=== PATIENT | female | born 1990 | race African-American/Black ===

== ENCOUNTER 2022-07-03 18:36 | Inpatient (IN) | payer OTHER ==
[2022-07-03 18:55] VITALS: BMI 20.9
[2022-07-03] MEDS ORDERED: MAGNESIUM CITRATE 300 ML BOTTLE PO PRN (19:29)
[2022-07-03] MEDS ORDERED: IBUPROFEN 400 MG TABLET (FP) PO PRN (19:29)
[2022-07-03] MEDS ORDERED: P-EPHED 60MG/TRIPROLIDI 2.5MG TABLET PO PRN (19:29)
[2022-07-03] MEDS ORDERED: guaiFENesin 200 MG/10 ML 10 ML UNIT-DOSE CUPS PO PRN (19:29)
[2022-07-03] MEDS ORDERED: NICOTINE 10 MG CARTRIDGE (INHALER) IH PRN (19:29)
[2022-07-03] MEDS ORDERED: LOPERAMIDE HCL 2 MG CAPSULE PO PRN (19:29)
[2022-07-03] MEDS ORDERED: MAG HYDROX/AL HYDROX/SIMETH 30 ML UNIT-DOSE CUP PO PRN (19:29)
[2022-07-03] MEDS ORDERED: ACETAMINOPHEN 325 MG TABLET (FP) PO PRN (19:29)
[2022-07-03] MEDS ORDERED: MAGNESIUM HYDROX 2400MG/30ML ORAL SUSPENSION 30 ML CUP PO PRN (19:29)
[2022-07-03 23:46] VITALS: RESP 18
[2022-07-03] MEDS: PRENATAL VITAMINS W/ FOLIC ACID TABLET (FP) PO SCH (23:57)
[2022-07-03] MEDS: THIAMINE HCL 100 MG TABLET (FP) PO SCH (23:57)
[2022-07-03] MEDS: hydrOXYzine PAMOATE 25 MG CAPSULE (FP) PO SCH (23:57)
[2022-07-03] MEDS: MELATONIN 5 MG TABLETS PO SCH (23:57)
[2022-07-03] MEDS: BACITRACIN 0.9 GM PACKET TP SCH (23:57)
[2022-07-03] MEDS: NICOTINE 7 MG/24 HOURS TOPICAL PATCH TD SCH (23:57)
[2022-07-04] MEDS: hydrOXYzine PAMOATE 25 MG CAPSULE (FP) PO SCH ×3 (07:52→14:07)
[2022-07-04] MEDS: NICOTINE 7 MG/24 HOURS TOPICAL PATCH TD SCH (09:53)
[2022-07-04] MEDS: PRENATAL VITAMINS W/ FOLIC ACID TABLET (FP) PO SCH (09:53)
[2022-07-04] MEDS: BACITRACIN 0.9 GM PACKET TP SCH (09:54)
[2022-07-04 11:11] LABS: HEMATOCRIT 33.9 % (32.4-45.2); HEMOGLOBIN 10.7 GM/dL (10.7-15.3); MCH 26.2 pg (25.7-33.7); MCHC 31.6 g/dl (32.0-36.0); MEAN CELL VOLUME 82.9 fl (80-96); MEAN PLT VOLUME 8.3 fl (7.5-11.1); PLATELET COUNT 458 10^3/uL (134-434); RBC 4.09 M/mm3 (3.60-5.2); RDW 15.3 % (11.6-15.6); WHITE BLOOD COUNT 4.3 K/mm3 (4.0-10.0)
[2022-07-04 11:36] LABS: CALCIUM 8.9 mg/dL (8.5-10.1)
[2022-07-04 11:37] LABS: ALBUMIN 3.5 g/dl (3.4-5.0); BLOOD UREA NITROGEN 11.3 mg/dL (7-18)
[2022-07-04 11:41] LABS: BILIRUBIN,TOTAL 0.5 mg/dL (0.2-1); TOT PROT 6.4 g/dl (6.4-8.2)
[2022-07-04] MEDS ORDERED: hydrOXYzine PAMOATE 25 MG CAPSULE (FP) PO PRN (16:19)
[2022-07-04] MEDS ORDERED: TUBERCULIN PPD 5 TU/0.1ML VIAL ID ONE (17:13)
[2022-07-04] MEDS: MELATONIN 5 MG TABLETS PO SCH (21:26)
[2022-07-04] MEDS: MIRTAZAPINE 15 MG TABLET (FP) PO SCH (21:27)
[2022-07-04] MEDS: THIAMINE HCL 100 MG TABLET (FP) PO SCH (21:27)
[2022-07-04] MEDS: QUEtiapine FUMARATE 50 MG TABLET PO SCH (21:28)
[2022-07-05 07:08] VITALS: PULSE 64
[2022-07-05] MEDS: NICOTINE 7 MG/24 HOURS TOPICAL PATCH TD SCH (09:57)
[2022-07-05] MEDS: PRENATAL VITAMINS W/ FOLIC ACID TABLET (FP) PO SCH (09:57)
[2022-07-05] MEDS: BACITRACIN 0.9 GM PACKET TP SCH (09:57)
[2022-07-05] MEDS: MELATONIN 5 MG TABLETS PO SCH (21:34)
[2022-07-05] MEDS: QUEtiapine FUMARATE 50 MG TABLET PO SCH (21:34)
[2022-07-05] MEDS: THIAMINE HCL 100 MG TABLET (FP) PO SCH (21:34)
[2022-07-05] MEDS: MIRTAZAPINE 15 MG TABLET (FP) PO SCH (21:34)
[2022-07-06 08:37] VITALS: BP 105/65; TEMP 97.6
[2022-07-06] MEDS: BACITRACIN 0.9 GM PACKET TP SCH (10:15)
[2022-07-06] MEDS: PRENATAL VITAMINS W/ FOLIC ACID TABLET (FP) PO SCH (10:15)
[2022-07-06] MEDS: NICOTINE 7 MG/24 HOURS TOPICAL PATCH TD SCH (10:15)
== END 2022-07-06 11:44 | disposition left against medical advice (07) | DRG 770 ==
LOC: YASAS 18:36 → Y5N 23:08
PROVIDERS: ADMIT Allergy & Immunology; ATTEND Psychiatry & Neurology Pain Medicine
PROC: HZ42ZZZ Group Counseling for Substance Abuse Treatment, Cognitive-Behavioral (ICD-10-PCS; principal; 2022-07-03)
DX: F11.20 Opioid dependence, uncomplicated (principal); F10.20 Alcohol dependence, uncomplicated; F14.20 Cocaine dependence, uncomplicated; F17.210 Nicotine dependence, cigarettes, uncomplicated; F19.282 Other psychoactive substance dependence with psychoactive substance-induced sleep disorder; F19.24 Other psychoactive substance dependence with psychoactive substance-induced mood disorder; Z86.69 Personal history of other diseases of the nervous system and sense organs; Z86.59 Personal history of other mental and behavioral disorders; Z59.00 Homelessness unspecified; Z56.0 Unemployment, unspecified
CPT/HCPCS: 36415; 80053; 81025; 85027; 86780; 93005; 93010; C9803-CS; U0003; U0005

== ENCOUNTER 2022-10-10 20:19 | Inpatient (IN) | payer OTHER ==
[2022-10-10 20:55] VITALS: BMI 22.1
[2022-10-10] MEDS ORDERED: hydrOXYzine PAMOATE 25 MG CAPSULE (FP) PO PRN (23:14)
[2022-10-10] MEDS ORDERED: ONDANSETRON *ODT* 4 MG TABLET SL PRN (23:14)
[2022-10-10] MEDS ORDERED: POLYETHYLENE GLYCOL (HEALTHYLAX) 3350 17 GM PACKET PO PRN (23:14)
[2022-10-10] MEDS ORDERED: LOPERAMIDE HCL 2 MG CAPSULE PO PRN (23:14)
[2022-10-10] MEDS ORDERED: MAG HYDROX/AL HYDROX/SIMETH 30 ML UNIT-DOSE CUP PO PRN (23:14)
[2022-10-10] MEDS ORDERED: IBUPROFEN 400 MG TABLET (FP) PO PRN (23:14)
[2022-10-10] MEDS ORDERED: NALOXONE HCL (KLOXXADO) 8 MG SPRAY NS PRN (23:14)
[2022-10-10] MEDS ORDERED: BISMUTH SUBSALICYLATE 524 MG/30 ML PO PRN (23:14)
[2022-10-10] MEDS ORDERED: MAGNESIUM HYDROX 2400MG/30ML ORAL SUSPENSION 30 ML CUP PO PRN (23:14)
[2022-10-10] MEDS ORDERED: DICYCLOMINE HCL 10 MG CAPSULE PO PRN (23:14)
[2022-10-10] MEDS ORDERED: IBUPROFEN 600 MG TABLET (FP) PO PRN (23:14)
[2022-10-10] MEDS ORDERED: BENZOCAINE/MENTHOL (CHLORASEPTIC ) LOZENGE MM PRN (23:14)
[2022-10-10] MEDS ORDERED: NICOTINE POLACRILEX 2 MG GUM BUC PRN (23:14)
[2022-10-10] MEDS ORDERED: ACETAMINOPHEN 325 MG TABLET (FP) PO PRN ×2 (23:14)
[2022-10-11] MEDS: METHOCARBAMOL 500 MG TABLET PO PRN (02:09)
[2022-10-11] MEDS: PRENATAL VITAMINS W/ FOLIC ACID TABLET (FP) PO SCH (10:59)
[2022-10-11] MEDS: NICOTINE 14 MG/24 HOURS TOPICAL PATCH TD SCH (10:59)
[2022-10-11 11:13] LABS: HEMATOCRIT 37.4 % (32.4-45.2); MCH 26.1 pg (25.7-33.7); MCHC 32.1 g/dl (32.0-36.0); MEAN CELL VOLUME 81.5 fl (80-96); MEAN PLT VOLUME 8.4 fl (7.5-11.1); PLATELET COUNT 412 10^3/uL (134-434); RBC 4.59 M/mm3 (3.60-5.2); RDW 19.2 % (11.6-15.6); WHITE BLOOD COUNT 3.8 K/mm3 (4.0-10.0)
[2022-10-11 11:50] LABS: CREATININE 0.9 mg/dL (0.55-1.3)
[2022-10-11 11:51] LABS: TOT PROT 6.7 g/dl (6.4-8.2)
[2022-10-11 11:52] LABS: ALBUMIN 3.6 g/dl (3.4-5.0); BILIRUBIN,TOTAL 0.5 mg/dL (0.2-1); BLOOD UREA NITROGEN 11.8 mg/dL (7-18)
[2022-10-11 11:54] LABS: CALCIUM 9.2 mg/dL (8.5-10.1)
[2022-10-11] MEDS ORDERED: MELATONIN 5 MG TABLETS PO SCH (22:00)
[2022-10-11] MEDS ORDERED: THIAMINE HCL 100 MG TABLET (FP) PO SCH (22:00)
[2022-10-11] MEDS: QUEtiapine FUMARATE 200 MG TABLET PO SCH (23:53)
[2022-10-12] MEDS: QUEtiapine FUMARATE 200 MG TABLET PO SCH (00:56)
[2022-10-12 09:37] VITALS: TEMP 97.3
[2022-10-12] MEDS: PRENATAL VITAMINS W/ FOLIC ACID TABLET (FP) PO SCH (10:43)
[2022-10-12] MEDS: NICOTINE 14 MG/24 HOURS TOPICAL PATCH TD SCH (10:44)
[2022-10-12] MEDS: METHOCARBAMOL 500 MG TABLET PO PRN (10:44)
[2022-10-12 13:01] VITALS: BP 117/59; PULSE 72; RESP 18
== END 2022-10-12 14:09 | disposition home or self-care (01) | DRG 774 ==
LOC: YASAS 20:19 → UNDOADMIN 23:17 → Y6N 23:17
PROVIDERS: ADMIT Allergy & Immunology; ATTEND Surgery
PROC: HZ2ZZZZ Detoxification Services for Substance Abuse Treatment (ICD-10-PCS; principal; 2022-10-10)
DX: F10.230 Alcohol dependence with withdrawal, uncomplicated (principal); F14.20 Cocaine dependence, uncomplicated; F12.20 Cannabis dependence, uncomplicated; F17.210 Nicotine dependence, cigarettes, uncomplicated; F19.280 Other psychoactive substance dependence with psychoactive substance-induced anxiety disorder; F19.282 Other psychoactive substance dependence with psychoactive substance-induced sleep disorder; F32.A Depression, unspecified
CPT/HCPCS: 36415; 71046-TC-FY; 80053; 81025; 85027; 86780; C9803-CS; U0003; U0005

== ENCOUNTER 2023-03-02 18:07 | Inpatient (IN) | payer OTHER ==
[2023-03-02 19:09] VITALS: BMI 29.5
[2023-03-02] MEDS ORDERED: NALOXONE HCL (KLOXXADO) 8 MG SPRAY NS PRN (20:01)
[2023-03-02] MEDS ORDERED: LOPERAMIDE HCL 2 MG CAPSULE PO PRN (20:01)
[2023-03-02] MEDS ORDERED: NALOXONE HCL 0.4 MG/ML VIAL IM PRN (20:01)
[2023-03-02] MEDS ORDERED: IBUPROFEN 600 MG TABLET (FP) PO PRN (20:01)
[2023-03-02] MEDS ORDERED: POLYETHYLENE GLYCOL (HEALTHYLAX) 3350 17 GM PACKET PO PRN (20:01)
[2023-03-02] MEDS ORDERED: guaiFENesin 600 MG TABLET.ER (FP) PO PRN (20:01)
[2023-03-02] MEDS ORDERED: MELATONIN 5 MG TABLETS PO PRN (20:01)
[2023-03-02] MEDS ORDERED: IBUPROFEN 400 MG TABLET (FP) PO PRN (20:01)
[2023-03-02] MEDS ORDERED: BENZONATATE 200 MG CAPSULE PO PRN (20:01)
[2023-03-02] MEDS ORDERED: P-EPHED 60MG/TRIPROLIDI 2.5MG TABLET PO PRN (20:01)
[2023-03-02] MEDS ORDERED: ACETAMINOPHEN 325 MG TABLET (FP) PO PRN (20:01)
[2023-03-02] MEDS ORDERED: BENZOCAINE/MENTHOL (CHLORASEPTIC ) LOZENGE MM PRN (20:01)
[2023-03-02] MEDS ORDERED: MAG HYDROX/AL HYDROX/SIMETH 30 ML UNIT-DOSE CUP PO PRN (20:01)
[2023-03-02] MEDS: COLLOIDAL OATMEAL 1 BAR EACH TP PRN (23:21)
[2023-03-02] MEDS ORDERED: TUBERCULIN PPD 5 TU/0.1ML SYRINGE (IN PATIENT USE ONLY) ID ONE (23:30)
[2023-03-02] MEDS: hydrOXYzine PAMOATE 25 MG CAPSULE (FP) PO PRN (23:33)
[2023-03-02] MEDS: THIAMINE HCL 100 MG TABLET (FP) PO SCH (23:34)
[2023-03-03] MEDS: BUPRENORPHINE/NALOXONE 4 MG/1 MG FILM PACKET SL SCH (10:37)
[2023-03-03] MEDS: PRENATAL VITAMINS W/ FOLIC ACID TABLET (FP) PO SCH (10:37)
[2023-03-03 13:20] LABS: EPI CELLS >36 /uL (0-25.1); HYALINE CASTS 9 /uL (0-3.1); URINE APPEARANCE CLOUDY; URINE BACTERIA 3014 /uL (0-1359); URINE BILIRUBIN NEGATIVE (NEGATIVE); URINE COLOR YELLOW; URINE GLUCOSE (UA) NEGATIVE (NEGATIVE); URINE KETONE NEGATIVE (NEGATIVE); URINE LEUK ESTERASE 1+ (NEGATIVE); URINE NITRITE NEGATIVE (NEGATIVE); URINE PROTEIN TRACE (NEGATIVE); URINE RBC 10 /uL (0-23.9); URINE UROBILINOGEN 0.2 mg/dL (0.2-1.0); URINE WBC 248 /uL (0-25.8)
[2023-03-03] MEDS: THIAMINE HCL 100 MG TABLET (FP) PO SCH (21:29)
[2023-03-03] MEDS: QUEtiapine FUMARATE 200 MG TABLET PO SCH (21:29)
[2023-03-03] MEDS: MIRTAZAPINE 15 MG TABLET (FP) PO SCH (21:29)
[2023-03-03] MEDS: DIVALPROEX SODIUM 500 MG TABLET E.C. PO SCH (21:29)
[2023-03-03] MEDS: NICOTINE 10 MG CARTRIDGE (INHALER) IH PRN (21:31)
[2023-03-03] MEDS: NICOTINE POLACRILEX 2 MG GUM BC PRN (21:43)
[2023-03-04] MEDS: PRENATAL VITAMINS W/ FOLIC ACID TABLET (FP) PO SCH (10:11)
[2023-03-04] MEDS: BUPRENORPHINE/NALOXONE 4 MG/1 MG FILM PACKET SL SCH (10:11)
[2023-03-04] MEDS: DIVALPROEX SODIUM 500 MG TABLET E.C. PO SCH ×2 (10:11→21:48)
[2023-03-04 12:21] LABS: HEMATOCRIT 33.6 % (32.4-45.2); HEMOGLOBIN 11.3 GM/dL (10.7-15.3); MCH 28.8 pg (25.7-33.7); MCHC 33.7 g/dl (32.0-36.0); MEAN CELL VOLUME 85.5 fl (80-96); PLATELET COUNT 389 10^3/uL (134-434); RBC 3.93 M/mm3 (3.60-5.2); RDW 14.7 % (11.6-15.6); WHITE BLOOD COUNT 4.3 K/mm3 (4.0-10.0)
[2023-03-04 12:44] LABS: POTASSIUM 4.3 mmol/L (3.5-5.1)
[2023-03-04 12:47] LABS: CALCIUM 9.1 mg/dL (8.5-10.1)
[2023-03-04 12:48] LABS: ALBUMIN 3.1 g/dl (3.4-5.0)
[2023-03-04 12:51] LABS: BILIRUBIN,TOTAL 0.4 mg/dL (0.2-1); CREATININE 1.1 mg/dL (0.55-1.3); TOT PROT 6.1 g/dl (6.4-8.2)
[2023-03-04] MEDS: NICOTINE POLACRILEX 2 MG GUM BC PRN ×2 (16:59→19:31)
[2023-03-04] MEDS: QUEtiapine FUMARATE 200 MG TABLET PO SCH (21:48)
[2023-03-04] MEDS: THIAMINE HCL 100 MG TABLET (FP) PO SCH (21:48)
[2023-03-04] MEDS: hydrOXYzine PAMOATE 25 MG CAPSULE (FP) PO PRN (21:48)
[2023-03-04] MEDS: MIRTAZAPINE 15 MG TABLET (FP) PO SCH (21:48)
[2023-03-05] MEDS: PRENATAL VITAMINS W/ FOLIC ACID TABLET (FP) PO SCH (10:25)
[2023-03-05] MEDS: DIVALPROEX SODIUM 500 MG TABLET E.C. PO SCH ×2 (10:25→21:23)
[2023-03-05] MEDS: BUPRENORPHINE/NALOXONE 4 MG/1 MG FILM PACKET SL SCH (10:26)
[2023-03-05] MEDS: THIAMINE HCL 100 MG TABLET (FP) PO SCH (21:22)
[2023-03-05] MEDS: QUEtiapine FUMARATE 200 MG TABLET PO SCH (21:22)
[2023-03-05] MEDS: hydrOXYzine PAMOATE 25 MG CAPSULE (FP) PO PRN (21:23)
[2023-03-05] MEDS: MIRTAZAPINE 15 MG TABLET (FP) PO SCH (21:23)
[2023-03-05] MEDS: NICOTINE POLACRILEX 2 MG GUM BC PRN (21:49)
[2023-03-06] MEDS: DIVALPROEX SODIUM 500 MG TABLET E.C. PO SCH ×2 (09:58→21:36)
[2023-03-06] MEDS: PRENATAL VITAMINS W/ FOLIC ACID TABLET (FP) PO SCH (09:58)
[2023-03-06] MEDS: BUPRENORPHINE/NALOXONE 4 MG/1 MG FILM PACKET SL SCH (09:59)
[2023-03-06] MEDS ORDERED: VITAMINS A AND D TOPICAL OINTMENT 60 GM TUBE TP PRN (11:20)
[2023-03-06] MEDS: NICOTINE POLACRILEX 2 MG GUM BC PRN ×3 (13:51→19:13)
[2023-03-06] MEDS: NICOTINE 10 MG CARTRIDGE (INHALER) IH PRN ×2 (13:51→20:38)
[2023-03-06] MEDS: hydrOXYzine PAMOATE 25 MG CAPSULE (FP) PO PRN ×2 (14:03→21:38)
[2023-03-06] MEDS ORDERED: HYDROCORTISONE 0.5% TOPICAL OINTMENT TUBE TP PRN (14:47)
[2023-03-06] MEDS ORDERED: BUPRENORPHINE/NALOXONE 4 MG/1 MG FILM PACKET SL ONE (15:00)
[2023-03-06] MEDS: HYDROCORTISONE 1% TOPICAL OINT 30 GM TUBE TP PRN (21:35)
[2023-03-06] MEDS: THIAMINE HCL 100 MG TABLET (FP) PO SCH (21:36)
[2023-03-06] MEDS: MIRTAZAPINE 15 MG TABLET (FP) PO SCH (21:36)
[2023-03-06] MEDS: QUEtiapine FUMARATE 200 MG TABLET PO SCH (21:36)
[2023-03-07] MEDS: COLLOIDAL OATMEAL 1 BAR EACH TP PRN (07:25)
[2023-03-07 08:03] VITALS: RESP 18
[2023-03-07] MEDS: PRENATAL VITAMINS W/ FOLIC ACID TABLET (FP) PO SCH (10:32)
[2023-03-07] MEDS: BUPRENORPHINE/NALOXONE 4 MG/1 MG FILM PACKET SL SCH ×2 (10:32→21:15)
[2023-03-07] MEDS: DIVALPROEX SODIUM 500 MG TABLET E.C. PO SCH ×2 (10:32→21:15)
[2023-03-07] MEDS: NICOTINE POLACRILEX 2 MG GUM BC PRN ×3 (11:41→20:17)
[2023-03-07] MEDS: HYDROCORTISONE 1% TOPICAL OINT 30 GM TUBE TP PRN (17:51)
[2023-03-07] MEDS: hydrOXYzine PAMOATE 25 MG CAPSULE (FP) PO PRN (21:15)
[2023-03-07] MEDS: THIAMINE HCL 100 MG TABLET (FP) PO SCH (21:15)
[2023-03-07] MEDS: QUEtiapine FUMARATE 200 MG TABLET PO SCH (21:15)
[2023-03-07] MEDS: MIRTAZAPINE 15 MG TABLET (FP) PO SCH (21:15)
[2023-03-08] MEDS: DIVALPROEX SODIUM 500 MG TABLET E.C. PO SCH ×2 (09:59→21:07)
[2023-03-08] MEDS: BUPRENORPHINE/NALOXONE 4 MG/1 MG FILM PACKET SL SCH ×2 (09:59→21:06)
[2023-03-08] MEDS: PRENATAL VITAMINS W/ FOLIC ACID TABLET (FP) PO SCH (09:59)
[2023-03-08] MEDS: NICOTINE POLACRILEX 2 MG GUM BC PRN ×3 (10:00→19:00)
[2023-03-08] MEDS ORDERED: FLU VACC QS2022-23(6MOS UP)/PF 60 MCG/0.5 ML SYRINGE IM ONE (12:00)
[2023-03-08] MEDS ORDERED: PNEUMOC 20-VAL CONJ-DIP CRM/PF 0.5 ML SYRINGE IM ONE (12:00)
[2023-03-08] MEDS: HYDROCORTISONE 1% TOPICAL OINT 30 GM TUBE TP PRN (21:07)
[2023-03-08] MEDS: hydrOXYzine PAMOATE 25 MG CAPSULE (FP) PO PRN (21:07)
[2023-03-08] MEDS: THIAMINE HCL 100 MG TABLET (FP) PO SCH (21:07)
[2023-03-08] MEDS: MIRTAZAPINE 15 MG TABLET (FP) PO SCH (21:07)
[2023-03-08] MEDS: QUEtiapine FUMARATE 200 MG TABLET PO SCH (21:07)
[2023-03-09] MEDS: hydrOXYzine PAMOATE 25 MG CAPSULE (FP) PO PRN ×3 (06:04→21:18)
[2023-03-09] MEDS: NICOTINE POLACRILEX 2 MG GUM BC PRN ×3 (06:46→20:10)
[2023-03-09] MEDS: BUPRENORPHINE/NALOXONE 4 MG/1 MG FILM PACKET SL SCH ×2 (11:02→21:18)
[2023-03-09] MEDS: PRENATAL VITAMINS W/ FOLIC ACID TABLET (FP) PO SCH (11:02)
[2023-03-09] MEDS: DIVALPROEX SODIUM 500 MG TABLET E.C. PO SCH ×2 (11:02→21:18)
[2023-03-09] MEDS: NICOTINE 10 MG CARTRIDGE (INHALER) IH PRN (11:03)
[2023-03-09] MEDS: THIAMINE HCL 100 MG TABLET (FP) PO SCH (21:18)
[2023-03-09] MEDS: MIRTAZAPINE 15 MG TABLET (FP) PO SCH (21:18)
[2023-03-09] MEDS: QUEtiapine FUMARATE 200 MG TABLET PO SCH (21:18)
[2023-03-10] MEDS: BUPRENORPHINE/NALOXONE 4 MG/1 MG FILM PACKET SL SCH (10:06)
[2023-03-10] MEDS: PRENATAL VITAMINS W/ FOLIC ACID TABLET (FP) PO SCH (10:06)
[2023-03-10] MEDS: DIVALPROEX SODIUM 500 MG TABLET E.C. PO SCH ×2 (10:06→21:26)
[2023-03-10] MEDS: NICOTINE POLACRILEX 2 MG GUM BC PRN ×2 (14:37→17:28)
[2023-03-10] MEDS: QUEtiapine FUMARATE 200 MG TABLET PO SCH (21:26)
[2023-03-10] MEDS: MIRTAZAPINE 15 MG TABLET (FP) PO SCH (21:26)
[2023-03-10] MEDS: THIAMINE HCL 100 MG TABLET (FP) PO SCH (21:26)
[2023-03-10] MEDS: hydrOXYzine PAMOATE 25 MG CAPSULE (FP) PO PRN (21:27)
[2023-03-11] MEDS: hydrOXYzine PAMOATE 25 MG CAPSULE (FP) PO PRN ×3 (06:55→18:16)
[2023-03-11] MEDS ORDERED: BUPRENORPHINE/NALOXONE 8 MG/2 MG FILM PACKET SL ONE (06:55)
[2023-03-11] MEDS ORDERED: BUPRENORPHINE/NALOXONE 8 MG/2 MG FILM PACKET SL SCH (10:00)
[2023-03-11] MEDS: PRENATAL VITAMINS W/ FOLIC ACID TABLET (FP) PO SCH (10:30)
[2023-03-11] MEDS: DIVALPROEX SODIUM 500 MG TABLET E.C. PO SCH ×2 (10:31→21:22)
[2023-03-11] MEDS: NICOTINE POLACRILEX 2 MG GUM BC PRN ×2 (10:31→18:00)
[2023-03-11] MEDS: MAGNESIUM HYDROX 2400MG/30ML ORAL SUSPENSION 30 ML CUP PO PRN (20:10)
[2023-03-11] MEDS: MIRTAZAPINE 15 MG TABLET (FP) PO SCH (21:22)
[2023-03-11] MEDS: QUEtiapine FUMARATE 200 MG TABLET PO SCH (21:22)
[2023-03-11] MEDS: THIAMINE HCL 100 MG TABLET (FP) PO SCH (21:23)
[2023-03-12] MEDS ORDERED: BUPRENORPHINE/NALOXONE 8 MG/2 MG FILM PACKET SL SCH (10:00)
[2023-03-12] MEDS: hydrOXYzine PAMOATE 25 MG CAPSULE (FP) PO PRN ×2 (10:17→21:17)
[2023-03-12] MEDS: DIVALPROEX SODIUM 500 MG TABLET E.C. PO SCH ×2 (10:17→21:17)
[2023-03-12] MEDS: PRENATAL VITAMINS W/ FOLIC ACID TABLET (FP) PO SCH (10:17)
[2023-03-12] MEDS: NICOTINE POLACRILEX 2 MG GUM BC PRN ×2 (15:58→22:08)
[2023-03-12] MEDS: MAGNESIUM HYDROX 2400MG/30ML ORAL SUSPENSION 30 ML CUP PO PRN (16:51)
[2023-03-12] MEDS ORDERED: BUPRENORPHINE/NALOXONE 4 MG/1 MG FILM PACKET SL ONE (18:00)
[2023-03-12] MEDS: MIRTAZAPINE 15 MG TABLET (FP) PO SCH (21:17)
[2023-03-12] MEDS: QUEtiapine FUMARATE 200 MG TABLET PO SCH (21:17)
[2023-03-12] MEDS: THIAMINE HCL 100 MG TABLET (FP) PO SCH (21:17)
[2023-03-13] MEDS: BUPRENORPHINE/NALOXONE 12 MG-3 MG SL FILM PACKET SL SCH ×2 (05:59→10:13)
[2023-03-13] MEDS: NICOTINE POLACRILEX 2 MG GUM BC PRN ×5 (07:15→21:35)
[2023-03-13] MEDS: DIVALPROEX SODIUM 500 MG TABLET E.C. PO SCH ×2 (09:52→21:34)
[2023-03-13] MEDS: PRENATAL VITAMINS W/ FOLIC ACID TABLET (FP) PO SCH (09:52)
[2023-03-13] MEDS: HYDROCORTISONE 1% TOPICAL OINT 30 GM TUBE TP PRN (09:53)
[2023-03-13] MEDS: NICOTINE 21 MG/24 HOURS TOPICAL PATCH TD SCH (13:56)
[2023-03-13] MEDS: COLLOIDAL OATMEAL 1 BAR EACH TP PRN (19:15)
[2023-03-13] MEDS: hydrOXYzine PAMOATE 25 MG CAPSULE (FP) PO PRN (21:34)
[2023-03-13] MEDS: QUEtiapine FUMARATE 200 MG TABLET PO SCH (21:34)
[2023-03-13] MEDS: MIRTAZAPINE 15 MG TABLET (FP) PO SCH (21:34)
[2023-03-13] MEDS: THIAMINE HCL 100 MG TABLET (FP) PO SCH (21:34)
[2023-03-14] MEDS: BUPRENORPHINE/NALOXONE 12 MG-3 MG SL FILM PACKET SL SCH (06:04)
[2023-03-14] MEDS: NICOTINE 21 MG/24 HOURS TOPICAL PATCH TD SCH (10:04)
[2023-03-14] MEDS: DIVALPROEX SODIUM 500 MG TABLET E.C. PO SCH ×2 (10:04→21:14)
[2023-03-14] MEDS: PRENATAL VITAMINS W/ FOLIC ACID TABLET (FP) PO SCH (10:04)
[2023-03-14] MEDS: hydrOXYzine PAMOATE 25 MG CAPSULE (FP) PO PRN ×2 (10:06→21:15)
[2023-03-14] MEDS: NICOTINE POLACRILEX 2 MG GUM BC PRN ×4 (10:28→18:52)
[2023-03-14] MEDS: QUEtiapine FUMARATE 200 MG TABLET PO SCH (21:14)
[2023-03-14] MEDS: THIAMINE HCL 100 MG TABLET (FP) PO SCH (21:14)
[2023-03-14] MEDS: MIRTAZAPINE 15 MG TABLET (FP) PO SCH (21:14)
[2023-03-15] MEDS: BUPRENORPHINE/NALOXONE 12 MG-3 MG SL FILM PACKET SL SCH (06:28)
[2023-03-15 07:23] VITALS: BP 129/57; PULSE 70; TEMP 97.7
[2023-03-15] MEDS: PRENATAL VITAMINS W/ FOLIC ACID TABLET (FP) PO SCH (09:43)
[2023-03-15] MEDS: hydrOXYzine PAMOATE 25 MG CAPSULE (FP) PO PRN (09:43)
[2023-03-15] MEDS: HYDROCORTISONE 1% TOPICAL OINT 30 GM TUBE TP PRN (09:43)
[2023-03-15] MEDS: DIVALPROEX SODIUM 500 MG TABLET E.C. PO SCH ×2 (09:43→21:45)
[2023-03-15] MEDS: NICOTINE 10 MG CARTRIDGE (INHALER) IH PRN (09:44)
[2023-03-15] MEDS: NICOTINE POLACRILEX 2 MG GUM BC PRN ×2 (09:44→12:26)
[2023-03-15] MEDS: NICOTINE 21 MG/24 HOURS TOPICAL PATCH TD SCH (10:09)
[2023-03-15] MEDS: QUEtiapine FUMARATE 200 MG TABLET PO SCH (21:45)
[2023-03-15] MEDS: THIAMINE HCL 100 MG TABLET (FP) PO SCH (21:45)
[2023-03-15] MEDS: MIRTAZAPINE 15 MG TABLET (FP) PO SCH (21:45)
== END 2023-03-15 19:05 | disposition left against medical advice (07) | DRG 770 ==
LOC: YASAS 18:07 → Y5N 23:03
PROVIDERS: ADMIT Allergy & Immunology; ATTEND Psychiatry & Neurology Pain Medicine
PROC: HZ42ZZZ Group Counseling for Substance Abuse Treatment, Cognitive-Behavioral (ICD-10-PCS; principal; 2023-03-02)
DX: F14.20 Cocaine dependence, uncomplicated (principal); F11.20 Opioid dependence, uncomplicated; F10.20 Alcohol dependence, uncomplicated; F12.20 Cannabis dependence, uncomplicated; F17.210 Nicotine dependence, cigarettes, uncomplicated; F25.9 Schizoaffective disorder, unspecified; F31.9 Bipolar disorder, unspecified; Z62.810 Personal history of physical and sexual abuse in childhood; Z91.410 Personal history of adult physical and sexual abuse; F91.8 Other conduct disorders; Z91.199 Patient's noncompliance with other medical treatment and regimen due to unspecified reason
CPT/HCPCS: 36415; 80053; 80164; 81003; 85027; 86780; 90677; C9803-CS; G0008; Q2036; U0003; U0005